=== PATIENT | male | born 1945 | race Caucasian/White ===

== ENCOUNTER 2020-10-12 12:17 | Outpatient (CLI) | payer MEDICARE, SELFPAY ==
--- NOTE | ~2020-10-12 | CT_ITS ---
EXAMINATION:CT lung screening DATE: 10/12/2020 14:13 INDICATION: Personal history of tobacco dependence. Current smoker with 56 pack year history. TECHNIQUE: Computed tomography (CT) of the chest was performed without intravenous contrast. Automate d exposure control and iterative reconstruction technique were employed. The dose-length product (DLP ) was 110.96 mGy-cm. COMPARISON: Chest CT 01/05/2019 FINDINGS: There is mild emphysema. There is a new 5 mm nodule in right upper lobe. There is a 3 mm no dule in left upper lobe without change. No pleural effusion. The heart size is normal. There are connie nary artery calcifications. No pericardial effusion. There are cysts in the kidneys measuring up to 4 .5 cm on the left. There is a gallstone in the gallbladder. There is mild thoracic spondylosis. IMPRESSION: 1. Lung-RADS category 3: Probably benign. Further evaluation is recommended with noncontrast low-dose chest CT in 6 months. Reviewed, dictated and finalized at location A. IMPRESSION: 1. Lung-RADS category 3: Probably benign. Further evaluation is recommended wit h noncontrast low-dose chest CT in 6 months.
--- NOTE | ~2020-10-12 | US_ITS ---
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 TECHNIQUE: Segmental pressures and plethysmographic and Doppler waveforms of the brachial and lower e xtremity arteries were obtained. COMPARISON: None. FINDINGS: Right and left brachial artery pressures of 152 mm Hg and 141 mm Hg, respectively, are concordant (no rmal difference <= 30 mmHg). The right ankle-brachial index (MÓNICA) is 0.86 (normal >= 0.9-1). The right great toe-brachial index (T BI) is 0.50 (normal >= 0.6-0.8). Arterial waveforms demonstrated brisk systolic upstrokes throughout the arteries of the right lower limb. The left MÓNICA is 0.78. The left TBI is 0.51. Arterial waveforms demonstrate brisk systolic upstrokes a t the arteries of the left lower limb. IMPRESSION: 1. Arterial occlusive disease to the bilateral lower limbs with mildly decreased bilateral ABIs and T BIs. Reviewed, dictated and finalized at location A. IMPRESSION: 1. Arterial occlusive disease to the bilateral lower limbs with mildly decrease d bilateral ABIs and TBIs.
--- NOTE | ~2020-10-12 | US_ITS ---
EXAMINATION: US carotid duplex BI DATE: 10/12/2020 13:21 INDICATION: Carotid stenosis. TECHNIQUE: Grayscale, color Doppler, and pulsed Doppler images of the cervical carotid arteries were obtained. The degree of vessel stenosis is placed in one of the following categories: normal, <50%, 5 0-69%, >=70% but less than near-occlusion, near-occlusion, or total occlusion. Note that percent sten osis relative to normal distal artery lumen diameter is indirectly measured from velocity measurement s as described by Esvin, et al. Radiology 2003; 229:340-346. COMPARISON: Ultrasound 11/14/2016 FINDINGS: RIGHT: The right common carotid artery (CCA) peak systolic velocity (PSV) is 91 cm/s. The right internal car otid artery (ICA) PSV is 57 cm/s. The right ICA end-diastolic velocity (EDV) is 18 cm/s. The right IC A/CCA PSV ratio is 0.6. Grayscale and color Doppler images yield an estimate of <50% diameter reducti on from plaque in the ICA. There is antegrade flow in the right vertebral artery. LEFT: The left CCA PSV is 84 cm/s. The left ICA PSV is 130 cm/s. The left ICA EDV is 33 cm/s. The left ICA/ CCA PSV ratio is 1.5. Grayscale and color Doppler images yield an estimate of >=50% diameter reductio n from plaque in the ICA. There is bidirectional, predominantly antegrade flow in the left vertebral artery. IMPRESSION: 1. <50% stenosis in the right internal carotid artery. 2. 50-69% stenosis in the left internal carotid artery. 3. Bidirectional, predominantly antegrade flow in left vertebral artery, which may be seen with verte bral artery stenosis or subclavian steal. Reviewed, dictated and finalized at location A. IMPRESSION: 1. <50% stenosis in the right internal carotid artery. 2. 50-69% stenosis in the left internal carotid artery. 3. Bidirectional, predominantly antegrade flow in left vertebral artery, which may be seen with vertebral artery stenosis or subclavian steal.
== END 2020-10-12 12:18 | disposition home or self-care (01) ==
LOC: CHSIMG 12:22
PROVIDERS: PCP Internal Medicine; Visit Provider Internal Medicine
DX: I73.9 Peripheral vascular disease, unspecified (principal); I65.29 Occlusion and stenosis of unspecified carotid artery; Z12.2 Encounter for screening for malignant neoplasm of respiratory organs; Z87.891 Personal history of nicotine dependence
CPT/HCPCS: 71271; 93880; 93925

== ENCOUNTER 2021-01-03 15:34 | Outpatient (CLI) | payer MEDICARE, SELFPAY ==
--- NOTE | ~2021-01-03 | XR_ITS ---
XR_[id number]_CR DATE: 01/03/2021 15:50 INDICATION: Neck pain radiating to left shoulder TECHNIQUE: AP, open-mouth, lateral views COMPARISON: None FINDINGS: C1 and C2 are normally aligned and the odontoid process is intact. No fracture or dislocati on or locked facet or prevertebral soft tissue swelling. There is minimal anterolisthesis at C2-3 and C3-4. There is mild degenerative disc disease at C4-5 and moderate degenerative disc disease at C5-6 and se tony degenerative disease at C6-7, with prominent anterior spurring from C4 through C7. Is uncovertebral joint spurring, particularly at C5-6 and C6-7. There is degenerative change at the a pophyseal joints. IMPRESSION: Cervical spondylosis Reviewed, dictated and finalized at Location [facility]. Reviewed, dictated and finalized at location A. IMPRESSION: Cervical spondylosis
== END 2021-01-03 15:35 | disposition home or self-care (01) ==
LOC: CHSIMG 15:37
PROVIDERS: PCP Internal Medicine; Visit Provider Internal Medicine
DX: M54.2 Cervicalgia (principal); M47.812 Spondylosis without myelopathy or radiculopathy, cervical region
CPT/HCPCS: 72040

== ENCOUNTER 2021-01-09 10:23 | Outpatient (CLI) | payer MEDICARE, SELFPAY ==
--- NOTE | ~2021-01-09 | CT_ITS ---
EXAMINATION: CT diagnostic chest wo con DATE: 01/09/2021 10:50 INDICATION: Indeterminate pulmonary nodule on lung cancer screening exam TECHNIQUE: Computed tomography (CT) of the chest was performed without intravenous contrast. The dose -length product (DLP) was 229.26 mGy-cm. Automated exposure control and iterative reconstruction tech [employer] were employed. COMPARISON: 10/12/2020 FINDINGS: There is mild emphysema. A 5 mm nodule of the right upper lobe persists and demonstrates sl ight increase in size. A 3 mm nodule of the left upper lobe is unchanged in size. There is no pleural effusion or pneumothorax. No pathologically enlarged thoracic lymph nodes are identified. The heart size is normal. Calcified coronary artery atherosclerosis is noted. There is mild thoracic spondylosi s. Punctate calcifications in an otherwise normal spleen likely represent healed granulomatous diseas e. A stone is present in the nondistended gallbladder. Cysts of the partially imaged kidneys measure up to 4.5 cm on the left. IMPRESSION: 1. Right upper lobe nodule which appears to slightly increased in size but remains small and would be a poor candidate for percutaneous biopsy or PET/CT due to size. Follow-up low-dose CT in three month s is recommended. Lung-RADS category 4A: Findings for which additional diagnostic testing and/or tiss ue sampling is recommended. Reviewed, dictated and finalized at location A. IMPRESSION: 1. Right upper lobe nodule which appears to slightly increased in size but marina ins small and would be a poor candidate for percutaneous biopsy or PET/CT due t o size. Follow-up low-dose CT in three months is recommended. Lung-RADS categor y 4A: Findings for which additional diagnostic testing and/or tissue sampling i s recommended.
== END 2021-01-09 10:24 | disposition home or self-care (01) ==
LOC: CHSIMG 10:24
PROVIDERS: PCP Internal Medicine; Visit Provider Internal Medicine
DX: R91.1 Solitary pulmonary nodule (principal)
CPT/HCPCS: 71250

== ENCOUNTER 2021-01-23 08:01 | Outpatient (CLI) | payer MEDICARE, SELFPAY ==
--- NOTE | ~2021-01-23 | US_ITS ---
US right upper quadrant INDICATION: Right upper abdominal pain PROCEDURE: Realtime right upper abdominal ultrasound. COMPARISON: No prior studies for comparison. FINDINGS: The pancreas is normal without focal mass or pancreatic ductal dilation. Liver echotexture is normal without focal mass or intrahepatic biliary dilatation. There is normal directional flow i n the portal vein. There are gallstones. Common bile duct measures 3 mm. No sonographic Downey's sign. IMPRESSION: 1: Cholelithiasis. Reviewed, dictated and finalized at location A. IMPRESSION: 1: Cholelithiasis.
--- NOTE | ~2021-01-23 | MR_ITS ---
EXAMINATION: MR cervical spine wo con EXAM DATE: 01/23/2021 10:27 INDICATION: Neck Pain LT shoulder pain x 3 mo no trauma . TECHNIQUE: Multi-sequential, multiplanar MR images of the cervical spine were obtained without contra st. Axial T2, axial T2 MERGE sequence. Sagittal T1, T2, T2 fat saturation images also obtained. Th ere is no prior study for comparison. FINDINGS: Mild to moderate disc disease at C5-6 and C6-7, mild at C4-5. There is 2 mm degenerative a nterolisthesis C3 on C4. The vertebral bodies are otherwise aligned. The spinal cord signal intensity and intrinsic morphology is normal. Cervicomedullary junction is normal in appearance. There are no suspicious marrow signal abnormalities. Paraspinal soft tissue is unremarkable. Level by level evaluation: C2-C3: Disc does not extend beyond the endplate margin. Uncovertebral joint arthropathy: Mild right. Facet joint arthropathy: Moderate right. Neural foraminal stenosis: Mild to moderate right. Central canal stenosis: No stenosis. C3-C4: Disc does not extend beyond the endplate margin. Uncovertebral joint arthropathy: Mild bilateral. Facet joint arthropathy: Severe right, mild to moderate left. Neural foraminal stenosis: Moderate right. Central canal stenosis: No stenosis. C4-C5: Mild to moderate disc bulge asymmetric to the left. Uncovertebral joint arthropathy: Moderate left, mild to moderate right. Facet joint arthropathy: Moderate bilateral. Neural foraminal stenosis: Moderate to severe left, mild right. Central canal stenosis: Mild. C5-C6: There is a mild diffuse disc bulge. Uncovertebral joint arthropathy: Severe bilateral. Facet joint arthropathy: Mild bilateral. Neural foraminal stenosis: Severe right, moderate to severe left. Central canal stenosis: Mild. C6-C7: There is a mild diffuse disc bulge. Uncovertebral joint arthropathy: Moderate bilateral. Facet joint arthropathy: Mild bilateral. Neural foraminal stenosis: Mild to moderate bilateral. Central canal stenosis: Mild . Central canal measures 7 mm in mid sagittal AP diameter . C7-T1: Disc does not extend beyond the endplate margin. Uncovertebral joint arthropathy: Mild to moderate bilateral. Facet joint arthropathy: Mild bilateral. Neural foraminal stenosis: Mild bilateral. Central canal stenosis: No stenosis. IMPRESSION: 1. C5-6 severe right, moderate to severe left neural foraminal stenosis. 2. Less spondylosis other levels. Reviewed, dictated and finalized at location B.
== END 2021-01-23 08:02 | disposition home or self-care (01) ==
PROVIDERS: PCP Internal Medicine; Visit Provider Internal Medicine
DX: M54.2 Cervicalgia (principal)
CPT/HCPCS: 72141; 76705

== ENCOUNTER 2021-11-19 14:47 | Outpatient (CLI) | payer MEDICARE, SELFPAY ==
--- NOTE | ~2021-11-19 | XR_ITS ---
EXAMINATION: XR chest 2V 11/19/2021 15:52 INDICATION: Covid . Cough. PROCEDURE: 2 view chest COMPARISON: 11/14/2016 FINDINGS: The lungs are clear. The cardiomediastinal silhouette is within normal limits. There are no pleural effusions. There is no pneumothorax suspected. There is atherosclerosis of the aorta. IMPRESSION: 1: NO ACUTE CARDIOPULMONARY DISEASE. Reviewed, dictated and finalized at location A.
[2021-11-19 15:30] LABS: Basophils Absolute Auto 0.03 K/mm3 (0.00-0.10); Basophils Percent Auto 0.8 % (0.0-1.0); Eosinophils Absolute Auto 0.04 K/mm3 (0.02-0.50); Hematocrit 42.2 % (37.0-46.0); Hemoglobin 14.3 g/dL (12.4-15.3); Immature Granulocyte Absolute 0.02 K/mm3 (0.00-0.00); Immature Granulocyte Percent A 0.5 % (0.0-0.0); Lymphocytes Absolute Auto 1.37 K/mm3 (1.10-4.50); Lymphocytes Percent Auto 34.3 % (18.0-42.0); Mean Corpuscular HGB Conc 33.9 g/dL (32.0-36.0); Mean Corpuscular Hemoglobin 34.3 pg (27.0-31.0); Mean Corpuscular Volume 101.2 fL (78.0-102.0); Mean Platelet Volume 9.6 fl (8.7-11.0); Monocytes Absolute Auto 0.49 K/mm3 (0.10-0.90); Monocytes Percent Auto 12.3 % (2.0-11.0); Neutrophils Absolute Auto 2.1 K/mm3 (1.7-7.2); Neutrophils Percent Auto 51.1 % (50.0-70.0); Platelet Count Result 216 K/mm3 (150-420); Red Blood Count 4.17 M/mm3 (4.70-6.10); Red Cell Distribution Width 11.8 % (11.6-14.4)
[2021-11-19 15:47] LABS: Alanine Aminotransferase 43 U/L (16-63); Albumin Level 3.3 g/dL (3.4-5.0); Alkaline Phosphatase 77 U/L (46-116); Anion Gap 8 mmol/L (8-16); Aspartate Amino Transferase 27 U/L (15-37); Bilirubin,Total 0.6 mg/dL (0.00-1.00); Blood Urea Nitrogen 26 mg/dL (7-18); Calcium 8.5 mg/dL (8.5-10.1); Carbon Dioxide 25 mmol/L (21-32); Chloride 92 mmol/L (98-108); Estimated Glomerular Filt Rate 23; Glucose 102 mg/dL (70-99); Osmolality Calculated 264 mOsm/kg (285-295); Potassium 4.4 mmol/L (3.5-5.1); Sodium 125 mmol/L (136-145); Total Protein 7.4 g/dL (6.4-8.2)
== END 2021-11-19 14:48 | disposition home or self-care (01) ==
LOC: CHSLAB 14:55
PROVIDERS: PCP Internal Medicine; Visit Provider Internal Medicine
DX: U07.1 COVID-19 (principal); R05.9 Cough, unspecified
CPT/HCPCS: 36415; 71046; 80053; 85025

== ENCOUNTER 2021-11-19 17:16 | Emergency (ER) | payer MEDICARE, SELFPAY ==
[2021-11-19 17:35] VITALS: BP 183/85; PULSE 74; RESP 16; TEMP 36.4; O2SAT 100
[2021-11-19] MEDS: SODIUM CHLORIDE 0.9% IV 1,000 ML 999 ML IV CONT (18:52)
--- NOTE | 2021-11-19 18:52 | PC.NURSE ---
Daughter, Priya Phillips, called for update. OK to update daughter with verbal permission from patient. Requesting call if patient would be admitted or have updates. Priya: [phone]
[2021-11-19] MEDS: DEXAMETHASONE SOD PHOS INJ 4 MG/ML VIAL IV PUSH (18:53)
[2021-11-19 18:55] LABS: Base Excess ABG -0.7 mmol/L (0-2); Oxygen Content ABG 18.5 %vol (16.0-22.0); Oxygen Saturation ABG 98.1 % (95-97); Oxyhemoglobin 93.4 % (94-100); PCO2 ABG 35.3 mmHg (35-45); PO2 ABG 118.2 mmHg (75-85); pH ABG 7.43 (7.35-7.45)
[2021-11-19 18:56] LABS: Device ROOM AIR; Modified Allen's Test Pass; Site Drawn RIGHT BRACHIAL
[2021-11-19 19:04] LABS: Add Urine Microscopic? YES; Appearance Urine Clear (Clear); Bilirubin Urine Negative (Negative); Blood Urine Negative (Negative); Color Urine Light Yellow (Yellow); Glucose Urine UA Negative (Negative); Ketones Urine Negative (Negative); Leukocyte Esterase Ur Negative (Negative); Nitrate Urine Negative (Negative); Protein Urine 2+ (Negative); Urobilinogen Urine 0.2 mg/dL (0.2-1.0)
[2021-11-19 19:05] LABS: Hematocrit 36.3 % (37.0-46.0); Hemoglobin 12.8 g/dL (12.4-15.3); Mean Corpuscular HGB Conc 35.3 g/dL (32.0-36.0); Mean Corpuscular Hemoglobin 35.1 pg (27.0-31.0); Mean Corpuscular Volume 99.5 fL (78.0-102.0); Mean Platelet Volume 9.8 fl (8.7-11.0); Platelet Count Result 186 K/mm3 (150-420); Red Blood Count 3.65 M/mm3 (4.70-6.10); Red Cell Distribution Width 11.8 % (11.6-14.4); White Blood Count 3.7 K/mm3 (4.8-10.8)
[2021-11-19 19:11] LABS: Bacteria Urine Trace /hpf; RBC Urine 0-2 /hpf (0-2); WBC Urine 0-3 /hpf (0-3)
[2021-11-19 19:12] LABS: Alanine Aminotransferase 36 U/L (16-63); Albumin Level 2.9 g/dL (3.4-5.0); Alkaline Phosphatase 66 U/L (46-116); Anion Gap 7 mmol/L (8-16); Aspartate Amino Transferase 23 U/L (15-37); Bilirubin,Total 0.5 mg/dL (0.00-1.00); Blood Urea Nitrogen 26 mg/dL (7-18); Calcium 8.1 mg/dL (8.5-10.1); Carbon Dioxide 22 mmol/L (21-32); Chloride 95 mmol/L (98-108); Estimated CRCL calculation 22 ml/min; Estimated Glomerular Filt Rate 24; Glucose 98 mg/dL (70-99); Osmolality Calculated 262 mOsm/kg (285-295); Potassium 4.5 mmol/L (3.5-5.1); Sodium 124 mmol/L (136-145); Total Protein 6.3 g/dL (6.4-8.2)
[2021-11-19 19:18] LABS: Lactic Acid Reflex 0.5 mmol/L (0.4-2.0)
[2021-11-19 19:33] LABS: Band Neutrophils Percent 1 % (0-6); Basophils Absolute Manual 0.03 K/mm3 (0-0.1); Basophils Percent Manual 1 % (0-1); Eosinophils Absolute Manual 0.03 K/mm3 (0.02-0.5); Eosinophils Percent Manual 1 % (1-6); Lymphocytes Absolute Manual 1.18 K/mm3 (1.1-4.5); Lymphocytes Percent Manual 32 % (18-44); Monocytes Absolute Manual 0.48 K/mm3 (0.1-0.90); Monocytes Percent Manual 13 % (3-9); Neutrophils Absolute Manual 1.96 K/mm3 (1.3-6.7); Neutrophils Percent Manual 52 % (46-73); Platelet Estimate Adequate (Adequate); Total Cells Counted 100
[2021-11-19 19:35] VITALS: BP 179/79; PULSE 78; RESP 20; TEMP 36.6; O2SAT 99
[2021-11-19] MEDS: PANTOPRAZOLE SODIUM IV 40 MG VIAL IV PUSH (19:44)
[2021-11-19] MEDS: ONDANSETRON INJ 4 MG/2 ML VIAL IV PUSH (19:44)
--- NOTE | 2021-11-19 19:55 | ED.GENADULT ---
HPI - General Adult General Chief complaint: Unspecified Stated complaint: liver,kidney not good per Dr Eason Time Seen by Provider: 11/19/21 17:20 Source: patient and RN notes reviewed Mode of arrival: wheelchair Limitations: no limitations History of Present Illness HPI narrative: lower abdominal pain MD complaint: lower abdominal pain Onset (ago): day(s) (1) Location: abdomen Radiation: non-radiation Severity: mild Severity scale (1-10): 4 Quality: aching Pain Consistency: constant Relieving factors: none Exacerbating factors: none Associated symptoms: headaches and malaise Related Data Home Medications Medication Instructions Recorded Confirmed albuterol sulfate 90 mcg/actuation 1 inh inhalation DAILY 11/19/21 11/19/21 aerosol inhaler carvedilol 12.5 mg tablet 1 tablet PO DAILY 11/19/21 11/19/21 clonidine HCl 0.1 mg tablet 1 tablet PO DAILY 11/19/21 11/19/21 enalapril maleate 20 mg tablet 1 tablet PO DAILY 11/19/21 11/19/21 hydralazine 50 mg tablet 1 tablet PO DAILY 11/19/21 11/19/21 Allergies Allergy/AdvReac Type Severity Reaction Status Date / Time No Known Allergies Allergy Mild Verified 11/19/21 17:46 Review of Systems Review of Systems: All systems reviewed & are unremarkable except as noted in HPI and below Constitutional: Constitutional: Reports no additional constitutional complaints, Reports body ache(s) and Reports headache(s) Eyes: Eyes: Reports no additional eye complaints ENT: Reports system reviewed and no additional complaints, except as documented Cardiovascular: Cardiovascular: Reports no additional cardiovascular complaints Respiratory: Respiratory: Reports no additional respiratory complaints Gastrointestinal: Gastrointestinal: Reports no additional gastrointestinal complaints Musculoskeletal: Musculoskeletal: Reports no additional musculoskeletal complaints Integumentary/Breasts: Skin/Breast: Reports system reviewed and no additional complaints, except as docu Neurologic: Reports system reviewed and no additional complaints, except as documented Psychiatric: Psychiatric: Reports no additional psychiatric complaints Endocrine: Endocrine: Reports no additional endocrine complaints Hematologic/Lymphatic: Hematologic/Lymphatic: Reports no additional hematologic/lymphatic complaints Allergic/Immunologic: Allergic/Immunologic: Reports no additional allergic/immunologic complaints PMFSH Past Medical History Medical History (Updated 12/10/21 @ 21:41 by Oni Martin MD) COVID-19 Exam Const: General: healthy appearing and no acute distress Nutritional Appearance: well nourished Orientation/consciousness: patient oriented x3 Limitations: no limitations HENMT: Head: normal to inspection Ears: external ears normal, TM's normal bilaterally and EAC's normal General nose exam: Normal external nose present and Normal nares present Face and sinus: normal facial exam and sinuses nontender Mouth: Yes Normal oral and palatal mucosa present and Yes moist mucous membranes Teeth and gingiva: dentition normal Throat: posterior oropharynx normal Eyes: Conjunctivae: conjunctivae normal Pupils: Equal, round and reactive pupils present EOM: EOMs intact bilaterally Neck: Neck: normal visual inspection, no lymphadenopathy and no meningeal signs Chest: Chest palpation & inspection: normal inspection of the chest Resp: Effort & Inspection: normal respiratory effort Auscultation: clear to auscultation bilaterally Cardio: Rate: regular rate Rhythm: regular rhythm GI: GI Palp: Yes Soft to palpation and No Tenderness to palpation present (GI) Auscultation: normal bowel sounds : General: Yes bladder normal to palpation and Yes no CVA tenderness Back/Spine/Pelvis: Back: no CVA tenderness Skin: General skin exam: normal color Rashes: no rashes Wounds: no wounds Neuro: General: patient oriented x3, moves all extremities, no meningeal signs, no focal motor deficits and CN
--- NOTE | 2021-11-19 20:14 | PC.NURSE ---
PT gave agreement to update his daughter Priya...Priya called per phone and update on pt status given for d/c home c instructions. Pt. given instruction for home and f/u care. Pt. verbalized complete understanding. Pt wanting to call his son Tc to [employer] for ride home, pt called from his room.
[2021-11-19 20:20] VITALS: BP 168/77; PULSE 75; RESP 20; TEMP 36.6; O2SAT 98
== END 2021-11-19 20:35 | disposition home or self-care (01) ==
PROVIDERS: Emergency Provider Emergency Medicine; PCP Internal Medicine
DX: U07.1 COVID-19 (principal); B34.9 Viral infection, unspecified
CPT/HCPCS: 36415; 36600; 80053; 81001; 82805; 83605; 85025; 96361; 96374; 96375; 99284; C9113; J1100; J2405; J7030

== ENCOUNTER 2021-12-10 12:48 | Outpatient (CLI) | payer MEDICARE, SELFPAY ==
--- NOTE | ~2021-12-10 | CT_ITS ---
EXAMINATION:CT diagnostic chest wo con DATE: 12/10/2021 13:07 INDICATION: Pulmonary nodule. TECHNIQUE: Computed tomography (CT) of the chest was performed without intravenous contrast. Automate d exposure control and iterative reconstruction technique were employed. The dose-length product (DLP ) was 97.35 mGy-cm. COMPARISON: Chest CT 01/09/2021 FINDINGS: There is moderate emphysema. There is a 7 mm nodule in right upper lobe that previously francisca sured 5 mm. No pleural effusion. The heart size is normal. There are coronary artery calcifications. No pericardial effusion. There is a gallstone in the gallbladder. There are cysts in the kidneys hugo uring up to 4.4 cm on the right. There is mild thoracic spondylosis. IMPRESSION: 1. Lung-RADS category 4A: Suspicious. Noncontrast low-dose chest CT is recommended in 3 months. Reviewed, dictated and finalized at location A. IMPRESSION: 1. Lung-RADS category 4A: Suspicious. Noncontrast low-dose chest CT is recommen ded in 3 months.
--- NOTE | ~2021-12-10 | US_ITS ---
EXAMINATION: US carotid duplex BI DATE: 12/10/2021 14:17 INDICATION: Carotid stenosis. TECHNIQUE: Grayscale, color Doppler, and pulsed Doppler images of the cervical carotid arteries were obtained. The degree of vessel stenosis is placed in one of the following categories: normal, <50%, 5 0-69%, >=70% but less than near-occlusion, near-occlusion, or total occlusion. Note that percent sten osis relative to normal distal artery lumen diameter is indirectly measured from velocity measurement s as described by Esvin, et al. Radiology 2003; 229:340-346. COMPARISON: Ultrasound 10/12/2020 FINDINGS: RIGHT: The right common carotid artery (CCA) peak systolic velocity (PSV) is 43 cm/s. The right internal car otid artery (ICA) PSV is 52 cm/s. The right ICA end-diastolic velocity (EDV) is 18 cm/s. The right IC A/CCA PSV ratio is 1.2. Grayscale and color Doppler images yield an estimate of <50% diameter reducti on from plaque in the ICA. There is antegrade flow in the right vertebral artery. LEFT: The left CCA PSV is 46 cm/s. The left ICA PSV is 132 cm/s. The left ICA EDV is 38 cm/s. The left ICA/ CCA PSV ratio is 2.9. Grayscale and color Doppler images yield an estimate of >=50% diameter reductio n from plaque in the ICA. There is antegrade flow in the left vertebral artery with a parvus-tardus w aveform. There is antegrade, biphasic flow in left subclavian artery. IMPRESSION: 1. <50% stenosis in the right internal carotid artery. 2. 50-69% stenosis in the left internal carotid artery. 3. Chronically abnormal waveform in left vertebral artery suspicious for stenosis in the left vertebr al artery or proximal left subclavian artery. Reviewed, dictated and finalized at location A. IMPRESSION: 1. <50% stenosis in the right internal carotid artery. 2. 50-69% stenosis in the left internal carotid artery. 3. Chronically abnormal waveform in left vertebral artery suspicious for stenos is in the left vertebral artery or proximal left subclavian artery.
== END 2021-12-10 12:49 | disposition home or self-care (01) ==
LOC: CHSIMG 12:49
PROVIDERS: PCP Internal Medicine; Visit Provider Internal Medicine
DX: I65.23 Occlusion and stenosis of bilateral carotid arteries (principal); R91.1 Solitary pulmonary nodule; Z86.16 Personal history of COVID-19
CPT/HCPCS: 71250; 93880

== ENCOUNTER 2021-12-26 08:39 | Outpatient (CLI) | payer MEDICARE, SELFPAY ==
--- NOTE | ~2021-12-26 | US_ITS ---
US art doppler w press LE BI INDICATION: Thickened toenails. Loss of hair. Iliac stents. TECHNIQUE: Segmental pressures and plethysmographic and Doppler waveforms of the brachial and lower e xtremity arteries were obtained. COMPARISON: Ultrasound dated 10/12/2020. FINDINGS: Right and left brachial artery pressures of 184 mm Hg and 182 mm Hg, respectively, are concordant (no rmal difference <= 30 mmHg). The right ankle-brachial index (MÓNICA) is 0.79 (normal >= 0.9-1.0). The right great toe-brachial index (TBI) is 0.62 (normal >= 0.60). The left MÓNICA is 0.83. The left TBI is 0.57. IMPRESSION: 1. Mildly diminished bilateral ankle brachial indices and left toe brachial index, consistent with pe ripheral arterial disease. Reviewed, dictated and finalized at location B. IMPRESSION: 1. Mildly diminished bilateral ankle brachial indices and left toe brachial ind ex, consistent with peripheral arterial disease.
== END 2021-12-26 08:40 | disposition home or self-care (01) ==
LOC: CHSIMG 08:40
PROVIDERS: PCP Internal Medicine; Visit Provider Internal Medicine
DX: I73.9 Peripheral vascular disease, unspecified (principal)
CPT/HCPCS: 93923

== ENCOUNTER 2021-12-27 08:33 | Outpatient (CLI) | payer MEDICARE, SELFPAY ==
--- NOTE | ~2021-12-27 | US_ITS ---
EXAMINATION: US aorta DATE: 12/27/2021 09:12 INDICATION: Abdominal aortic aneurysm screening, hypertension, intermittent claudication, prior smoke r TECHNIQUE: Grayscale, color Doppler, and pulsed Doppler images of the aorta and common iliac arteries were obtained. COMPARISON: None. FINDINGS: Maximum vascular dimensions are as follows: Proximal aorta: 1.8 cm Mid aorta: 1.7 cm Distal aorta: 1.8 cm Right common iliac artery: 0.8 cm Left common iliac artery: 0.7 cm There is no evidence of abdominal aortic aneurysm. IMPRESSION: 1. No sonographic evidence of abdominal aortic aneurysm. Reviewed, dictated and finalized at location A.
--- NOTE | 2021-12-27 01:00 | ECHO_ITS ---
Patient Info Name: Spenser Burt Age: 76 years : 1945 Gender: Male Ht: 69 in Wt: 158 lbs BSA: 1.87 m2 HR: 89 bpm BP: 177 / 85 mmHg Heart Rhythm: Sinus Rhythm Technical Quality: Fair Exam Date: 12/27/2021 12:14 PM Exam Location: [facility] Patient Status: Outpatient Admit Date: 12/27/2021 Staff Ordering Physician: Enid Eason MD Group Leader: Caterina Raymond RDCS Attending Provider: Enid Eason MD Referring Physician: Jenaro GARCIA; Exam Type: CA echo doppler color flow Study Info Indications R06.00 - Dyspnea, unspecified Complete two-dimensional, color flow and Doppler transthoracic echocardiogram is performed. Summary 1. Complete two-dimensional, color flow and Doppler transthoracic echocardiogram is performed. 2. Left ventricular chamber dimension is normal. 3. Left ventricular systolic function is normal, estimated at 65-70%. 4. The left ventricular diastolic function is grade I diastolic dysfunction. 5. E/e' 12 is mildly elevated. 6. There is mild aortic valve sclerosis. 7. There is trace tricuspid valve regurgitation. 8. No pulmonary hypertension, estimated pulmonary arterial systolic pressure is 24 mmHg. Left Ventricle E/e' 12 is mildly elevated. Left ventricular chamber dimension is normal. Left ventricular systolic function is normal, estimated at 65-70%. The left ventricular diastolic function is grade I diastolic dysfunction. Right Ventricle Right ventricular systolic function is normal and with normal TAPSE 2.2 cm. Right ventricular chamber dimension is normal. Left Atria Left atrial chamber dimension is normal. Right Atria Right atrial chamber dimension is normal. Aortic Valve The aortic valve is trileaflet. There is mild aortic valve sclerosis. There is no aortic valve stenosis. There is no aortic valve regurgitation. Pulmonic Valve There is no pulmonic regurgitation. Mitral Valve There is no mitral valve stenosis. There is no mitral valve regurgitation. Tricuspid Valve There is trace tricuspid valve regurgitation. No pulmonary hypertension, estimated pulmonary arterial systolic pressure is 24 mmHg. Pericardium/Pleural There is no pericardial effusion. Inferior Vena Cava Normal inferior vena cava with >50% collapse upon inspiration consistent with normal right atrial pressure, 5 mmHg. Aorta The aortic root size at the sinus of Valsalva is normal. Left Ventricular Outflow Tract Name Value Normal LVOT 2D LVOT Diameter 2.0 cm LVOT Doppler LVOT Peak Velocity 114 cm/s LVOT Peak Gradient 5 mmHg LVOT Mean Gradient 2 mmHg LVOT VTI 20 cm LVOT VTI/AV VTI Ratio 0.8 LVOT Stroke Volume 63 ml Pulmonic Valve Name Value Normal RVOT Doppler
== END 2021-12-27 08:34 | disposition home or self-care (01) ==
LOC: CHSIMG 08:34
PROVIDERS: PCP Internal Medicine; Visit Provider Internal Medicine
DX: I71.4 Abdominal aortic aneurysm, without rupture (principal); R06.00 Dyspnea, unspecified
CPT/HCPCS: 76775; 93306

== ENCOUNTER 2022-02-21 10:19 | Outpatient (CLI) | payer MEDICARE, SELFPAY ==
[2022-02-21 10:35] VITALS: PULSE 80; O2SAT 98
[2022-02-21 10:42] VITALS: PULSE 99; O2SAT 99
--- NOTE | 2022-02-21 10:52 | HOMEO2EVAL ---
Evaluation was performed at [facility] [place] Home Oxygen Evaluation RC: Home Oxygen (O2) Evaluation Start: 02/21/22 10:48 Freq: Status: Active Protocol: RPE Activity Type Activity Date Activity User E-sign Co-sign Detail Recorded Client Recorded Date Recorded By Document 02/21/22 10:35 SJB [email or web address] 02/21/22 10:52 SJB Document 02/21/22 10:42 SJB [email or web address] 02/21/22 10:52 SJB 02/21/22 02/21/22 10:35 10:42 Home O2 Evaluation [Oxygen] -Test Phase Resting Exercise -Oxygen Delivery Room Air Room Air [Pulse Oximetry] -Pulse Oximetry (90-100 %) 98 99 [Pulse Rate] -Pulse Rate (60-100 beats/min) 80 99 [Evaluation] -Activity Tolerance Excellent -Rate of Perceived Exertion (PE) 11 Fairly light Query Text:Click the Protocol Button to View the RPE Scale [Exercise] -Ambulation Distance (feet) 1,200 -Ambulation Distance (meters) 365.74 [Comments] -Home Oxygen Evaluation Comments Will begin walk Pt walked on room air. approx 1200 ft on room air. Tolerated well, talking through out the test. Sp02s remained between 97-99%, HR up to 99. [Charges] -Treatment Charges O2 Evaluation - Outpatient
== END 2022-02-21 10:20 | disposition home or self-care (01) ==
PROVIDERS: PCP Internal Medicine
DX: J44.9 Chronic obstructive pulmonary disease, unspecified (principal); R06.02 Shortness of breath
CPT/HCPCS: 94060; 94618; 94726; 94729